=== PATIENT | female | born 1950 | race Asian ===

== ENCOUNTER 2021-06-20 11:25 | Emergency (ER) | payer OTHER, SELFPAY ==
[~2021-06-20] VITALS: Ht 157.5 cm; Wt 63.1 kg
[2021-06-20] MEDS ORDERED: [UNRECOGNIZED DRUG - OTHER] PO (11:47)
[2021-06-20] MEDS ORDERED: TELM1TAB35 PO (11:47)
[2021-06-20 13:48] VITALS: BP 190/110
[2021-06-20 13:53] LABS: BLOOD UREA NITROGEN 9 MG/DL (7-18); CALCIUM LEVEL 9.2 MG/DL (8.8-10.2); CARBON DIOXIDE LEVEL 24 MEQ/L (21-32); CHLORIDE LEVEL 104 MEQ/L (98-107); CREATININE FOR GFR 0.76 MG/DL (0.55-1.30); GLOMERULAR FILTRATION RATE > 60.0 (>39); GLUCOSE, FASTING 96 MG/DL (70-100); POTASSIUM SERUM 4.1 MEQ/L (3.5-5.1); SODIUM LEVEL 135 MEQ/L (136-145)
== END 2021-06-20 15:30 | disposition home or self-care (01) ==
LOC: M ED 11:25
DX: Z76.0 Encounter for issue of repeat prescription (principal); I10 Essential (primary) hypertension; E78.5 Hyperlipidemia, unspecified; Z79.899 Other long term (current) drug therapy